=== PATIENT | male | born 1970 | race African-American/Black ===

== ENCOUNTER 2023-07-13 10:41 | Inpatient (IN) | payer OTHER ==
[2023-07-13] MEDS ORDERED: ACETAMINOPHEN 1000 MG/100 ML BAG IVPB ONE (12:58)
[2023-07-13] MEDS ORDERED: ACETAMINOPHEN INJECTION 100 ML IVPB ONE (14:16)
[2023-07-13 14:42] LABS: BASO % 1.1 % (0-2.0); EOS % 2.9 % (0-4.5); HEMATOCRIT 48.4 % (35.4-49); HEMOGLOBIN 16.1 GM/dL (11.7-16.9); LYMPH % 28.2 % (8-40); MCH 27.9 pg (25.7-33.7); MCHC 33.3 g/dl (32.0-35.9); MEAN CELL VOLUME 83.8 fl (80-96); MEAN PLT VOLUME 10.2 fl (7.5-11.1); MONO % 7.9 % (3.8-10.2); NEUT % 59.9 % (42.8-82.8); PLATELET COUNT 259 10^3/uL (134-434); RBC 5.78 M/mm3 (4.00-5.60); RDW 14.5 % (11.9-15.9); WHITE BLOOD COUNT 9.5 K/mm3 (4.0-10.0)
[2023-07-13 15:05] LABS: POTASSIUM 4.3 mmol/L (3.5-5.1)
[2023-07-13 15:07] LABS: CALCIUM 9.4 mg/dL (8.5-10.1)
[2023-07-13 15:08] LABS: ALBUMIN 3.4 g/dl (3.4-5.0); BLOOD UREA NITROGEN 12.7 mg/dL (7-18)
[2023-07-13 15:11] LABS: CREATININE 0.8 mg/dL (0.55-1.3)
[2023-07-13 15:13] LABS: BILIRUBIN,TOTAL 0.8 mg/dL (0.2-1); TOT PROT 7.8 g/dl (6.4-8.2)
[2023-07-13 21:28] LABS: URINE APPEARANCE CLEAR; URINE BILIRUBIN NEGATIVE (NEGATIVE); URINE COLOR YELLOW; URINE GLUCOSE (UA) NEGATIVE (NEGATIVE); URINE KETONE NEGATIVE (NEGATIVE); URINE PROTEIN NEGATIVE (NEGATIVE)
[2023-07-13 21:29] LABS: EPI CELLS 8.4 /uL (0-25.1); HYALINE CASTS 0.73 /uL (0-3.1); URINE BACTERIA 103.2 /uL (0-1359); URINE LEUK ESTERASE NEGATIVE (NEGATIVE); URINE NITRITE NEGATIVE (NEGATIVE); URINE RBC 6.2 /uL (0-23.9); URINE WBC 30.5 /uL (0-25.8)
[2023-07-14] VITALS: BMI 33.3
[2023-07-14 09:04] LABS: HEMATOCRIT 45.2 % (35.4-49); HEMOGLOBIN 14.9 GM/dL (11.7-16.9); MCH 27.8 pg (25.7-33.7); MEAN CELL VOLUME 84.1 fl (80-96); MEAN PLT VOLUME 10.1 fl (7.5-11.1); PLATELET COUNT 240 10^3/uL (134-434); RBC 5.38 M/mm3 (4.00-5.60); RDW 14.9 % (11.9-15.9)
[2023-07-14 09:22] LABS: CALCIUM 8.9 mg/dL (8.5-10.1)
[2023-07-14 09:23] LABS: ALBUMIN 3.1 g/dl (3.4-5.0); BLOOD UREA NITROGEN 14.8 mg/dL (7-18); MAGNESIUM 2.5 mg/dL (1.8-2.4)
[2023-07-14 09:27] LABS: TOT PROT 6.9 g/dl (6.4-8.2)
[2023-07-14 09:28] LABS: BILIRUBIN,TOTAL 0.9 mg/dL (0.2-1)
[2023-07-14] MEDS ORDERED: ENOXAPARIN NA (PORCINE) 40 MG/0.4 ML DISP.SYRIN SQ SCH (10:00)
[2023-07-14] MEDS: ACETAMINOPHEN 500 MG TABLET (FP) PO PRN ×2 (14:22→22:35)
[2023-07-15] MEDS: ACETAMINOPHEN 500 MG TABLET (FP) PO PRN ×2 (08:16→21:11)
[2023-07-15 09:02] LABS: BASO % 0.7 % (0-2.0); EOS % 2.2 % (0-4.5); HEMATOCRIT 47.4 % (35.4-49); HEMOGLOBIN 16.1 GM/dL (11.7-16.9); LYMPH % 11.7 % (8-40); MCH 28.5 pg (25.7-33.7); MCHC 34.1 g/dl (32.0-35.9); MEAN CELL VOLUME 83.7 fl (80-96); MONO % 6.6 % (3.8-10.2); NEUT % 78.8 % (42.8-82.8); PLATELET COUNT 224 10^3/uL (134-434); RBC 5.66 M/mm3 (4.00-5.60); RDW 14.7 % (11.9-15.9); WHITE BLOOD COUNT 9.4 K/mm3 (4.0-10.0)
[2023-07-15 09:54] LABS: CALCIUM 9.2 mg/dL (8.5-10.1)
[2023-07-15 09:55] LABS: ALBUMIN 3.4 g/dl (3.4-5.0); BLOOD UREA NITROGEN 16.5 mg/dL (7-18); CREATININE 0.9 mg/dL (0.55-1.3)
[2023-07-15 09:57] LABS: TOT PROT 7.7 g/dl (6.4-8.2)
[2023-07-15] MEDS: LACTOBACILLUS ACIDOPHILUS 1 TABLET PO SCH (14:14)
[2023-07-15] MEDS: CEFTRIAXONE 1 GM in DEXTROSE 5%-WATER - 50 ML IVPB SCH (17:26)
[2023-07-15] MEDS: CLOTRIMAZOLE/BETAMET DIPROP 15 GM TUBE TP SCH (21:11)
[2023-07-16] MEDS: CLOTRIMAZOLE/BETAMET DIPROP 15 GM TUBE TP SCH ×3 (07:12→21:28)
[2023-07-16 08:33] LABS: BASO % 0.6 % (0-2.0); EOS % 1.9 % (0-4.5); HEMATOCRIT 45.1 % (35.4-49); HEMOGLOBIN 15.2 GM/dL (11.7-16.9); LYMPH % 27.9 % (8-40); MCHC 33.7 g/dl (32.0-35.9); MEAN CELL VOLUME 83.1 fl (80-96); MEAN PLT VOLUME 9.6 fl (7.5-11.1); NEUT % 58.6 % (42.8-82.8); PLATELET COUNT 206 10^3/uL (134-434); RBC 5.44 M/mm3 (4.00-5.60); RDW 14.4 % (11.9-15.9); WHITE BLOOD COUNT 6.2 K/mm3 (4.0-10.0)
[2023-07-16 08:54] LABS: CALCIUM 8.8 mg/dL (8.5-10.1); POTASSIUM 3.8 mmol/L (3.5-5.1)
[2023-07-16 08:55] LABS: BLOOD UREA NITROGEN 12.2 mg/dL (7-18)
[2023-07-16] MEDS: LACTOBACILLUS ACIDOPHILUS 1 TABLET PO SCH (09:16)
[2023-07-16] MEDS: CEFTRIAXONE 1 GM in DEXTROSE 5%-WATER - 50 ML IVPB SCH (09:16)
[2023-07-17] MEDS: CLOTRIMAZOLE/BETAMET DIPROP 15 GM TUBE TP SCH ×3 (06:46→23:09)
[2023-07-17] MEDS: LACTOBACILLUS ACIDOPHILUS 1 TABLET PO SCH (10:39)
[2023-07-17] MEDS: CEFTRIAXONE 1 GM in DEXTROSE 5%-WATER - 50 ML IVPB SCH (10:39)
[2023-07-18] MEDS: CLOTRIMAZOLE/BETAMET DIPROP 15 GM TUBE TP SCH ×3 (06:34→23:20)
[2023-07-18] MEDS: LACTOBACILLUS ACIDOPHILUS 1 TABLET PO SCH (10:08)
[2023-07-18] MEDS: CEFTRIAXONE 1 GM in DEXTROSE 5%-WATER - 50 ML IVPB SCH (10:08)
[2023-07-18] MEDS: ACETAMINOPHEN 500 MG TABLET (FP) PO PRN (10:08)
[2023-07-19] MEDS: CLOTRIMAZOLE/BETAMET DIPROP 15 GM TUBE TP SCH ×3 (07:17→21:53)
[2023-07-19 08:41] LABS: BASO % 0.6 % (0-2.0); EOS % 2.2 % (0-4.5); HEMATOCRIT 47.9 % (35.4-49); HEMOGLOBIN 16.5 GM/dL (11.7-16.9); LYMPH % 31.5 % (8-40); MCH 28.5 pg (25.7-33.7); MCHC 34.4 g/dl (32.0-35.9); MEAN CELL VOLUME 83.1 fl (80-96); MEAN PLT VOLUME 9.8 fl (7.5-11.1); MONO % 8.7 % (3.8-10.2); PLATELET COUNT 250 10^3/uL (134-434); RBC 5.77 M/mm3 (4.00-5.60); RDW 14.5 % (11.9-15.9); WHITE BLOOD COUNT 7.5 K/mm3 (4.0-10.0)
[2023-07-19 08:58] LABS: POTASSIUM 4.3 mmol/L (3.5-5.1)
[2023-07-19 09:01] LABS: CALCIUM 9.3 mg/dL (8.5-10.1)
[2023-07-19 09:02] LABS: ALBUMIN 3.4 g/dl (3.4-5.0); BLOOD UREA NITROGEN 10.1 mg/dL (7-18); MAGNESIUM 2.3 mg/dL (1.8-2.4)
[2023-07-19 09:06] LABS: BILIRUBIN,TOTAL 0.5 mg/dL (0.2-1)
[2023-07-19] MEDS: LACTOBACILLUS ACIDOPHILUS 1 TABLET PO SCH (10:00)
[2023-07-19] MEDS: CEFTRIAXONE 1 GM in DEXTROSE 5%-WATER - 50 ML IVPB SCH (10:00)
[2023-07-19] MEDS: CEFUROXIME AXETIL 500 MG TABLET PO SCH (21:53)
[2023-07-20] MEDS: CLOTRIMAZOLE/BETAMET DIPROP 15 GM TUBE TP SCH ×2 (06:18→13:02)
[2023-07-20] MEDS: CEFUROXIME AXETIL 500 MG TABLET PO SCH (09:08)
[2023-07-20] MEDS: LACTOBACILLUS ACIDOPHILUS 1 TABLET PO SCH (09:08)
[2023-07-20] MEDS ORDERED: FUROSEMIDE 40 MG/4 ML INJECTABLE VIAL ONE (14:20)
[2023-07-20 14:42] VITALS: BP 140/83; PULSE 89; RESP 20; TEMP 97.3
== END 2023-07-20 19:35 | disposition short-term general hospital (02) | DRG 461 ==
LOC: JER 10:41 → JERBED 19:47 → J7W 07-14 00:19
PROVIDERS: ADMIT Internal Medicine; ATTEND Nurse Practitioner Acute Care
DX: C64.9 Malignant neoplasm of unspecified kidney, except renal pelvis (principal); K76.0 Fatty (change of) liver, not elsewhere classified; B96.20 Unspecified Escherichia coli [E. coli] as the cause of diseases classified elsewhere; J45.909 Unspecified asthma, uncomplicated; N39.0 Urinary tract infection, site not specified; N48.1 Balanitis; R31.9 Hematuria, unspecified
CPT/HCPCS: 36415; 71260-TC; 74177-TC; 78306-TC; 80048; 80053; 81003; 83605; 83690; 83735; 85025; 85027; 85730; 87086; 87186; 87635; 88108; 99285-25; A9503; J0131; Q9967